=== PATIENT | female | born 1975 | race Hispanic/Latino ===

== ENCOUNTER → 2025-01-12 | Outpatient (CLI) | payer OTHER ==
[~2025-01-12] MED LIST: ADDE10 PO
== END | disposition home or self-care (01) ==
LOC: RAH 08:11
PROVIDERS: ATTEND Student in an Organized Health Care Education/Training Program
DX: Z12.31 Encounter for screening mammogram for malignant neoplasm of breast (principal)
CPT/HCPCS: 77067